=== PATIENT | male | born 1950 | race Caucasian/White ===

== ENCOUNTER → 2018-08-16 06:53 | Outpatient (CLI) | payer MEDICARE, BC, SELFPAY ==
[2018-08-16 07:26] LABS: Add Manual Diff / Slide Review NO; Basophils Percent Auto 0.7 % (0-2); Eosinophils Percent Auto 2.4 % (2-4); Hematocrit 42.5 % (41-53); Hemoglobin 14.6 g/dL (13.5-17.5); Lymphocytes Percent Auto 18.8 % (25-40); Mean Corpuscular HGB Conc 34.4 % (30-36); Mean Corpuscular Hemoglobin 33.6 PG (26-34); Mean Corpuscular Volume 97.8 fL (80-100); Monocytes Percent Auto 9.3 % (3-14); Neutrophils Absolute Auto 4300 /uL (3000-5900); Neutrophils Percent Auto 68.8 % (50-75); Platelet Count 257 X10^3/uL (150-400); Red Blood Cell Count 4.35 X10^6/uL (4.5-5.9); White Blood Cell Count 6.2 X10^3/uL (4.5-11.0)
[2018-08-16 07:37] LABS: Alanine Aminotransferase 46 IU/L (21-72); Albumin 4.2 g/dL (3.5-5.0); Albumin Globulin Ratio 1.5 (1.0-2.8); Alkaline Phosphatase 100 U/L (38-126); Aspartate Aminotransferase 35 IU/L (17-59); BUN Creatinine Ratio 38.9 (6-22); Bilirubin Total 0.3 mg/dL (0.2-1.3); Blood Urea Nitrogen 35 mg/dL (9-20); Calcium 9.3 mg/dL (8.4-10.2); Carbon Dioxide 26 mmol/L (22-32); Chloride 109 mmol/L (98-107); Cholesterol 168 mg/dL (140-199); Estimated Glomerular Filt Rate > 60.0 mL/min (>60); Globulin 2.8 g/dL (1.7-4.1); Glucose 88 mg/dL (80-110); HDL Cholesterol 47 mg/dL (40-60); HEMOLYSIS < 15 (0-50); LDL Cholesterol Calculated 98 mg/dL (<100); Sodium 145 mmol/L (137-145); Triglycerides 117 mg/dL (35-150)
[2018-08-16 18:52] LABS: Hep C Virus Ab w/Reflex Quant NEGATIVE s/c (NEGATIVE)
== END ==
PROVIDERS: Visit Provider Internal Medicine
DX: I10 Essential (primary) hypertension (principal); E78.00 Pure hypercholesterolemia, unspecified
CPT/HCPCS: 36415; 80053; 80061; 85025; 86803

== ENCOUNTER → 2018-09-25 08:30 | Outpatient (CLI) | payer MEDICARE, BC, SELFPAY ==
--- NOTE | 2018-09-25 | DI.US.S_ITS ---
PROCEDURE: US ABD AORTA ANEURYSM SCREEN INDICATIONS: SCREENING TECHNIQUE: Real time scanning was performed of the aorta and iliac arteries, with image documentation. COMPARISON: None. FINDINGS: Aorta: Proximal aortic diameter measures 2.4 cm. Mid-aorta measures 1.8 cm. Distal aortic diameter is 1.7 cm. Iliac arteries: Right common iliac artery measures 1.2 cm. Left common iliac artery measures 1.1 cm. IMPRESSION: No sign of aneurysm or dissection found. Normal caliber aorta and iliac arteries. Dictated by: Yusuf Nguyen M.D. on 09/25/2018 at 9:45 Approved by: Yusuf Nguyen M.D. on 09/25/2018 at 9:52
== END ==
PROVIDERS: PCP Internal Medicine; Visit Provider Internal Medicine
DX: Z13.6 Encounter for screening for cardiovascular disorders (principal)
CPT/HCPCS: 76706

== ENCOUNTER → 2019-03-25 15:00 | Outpatient (CLI) | payer MEDICARE, BC, SELFPAY ==
[2019-03-25 17:43] LABS: BUN Creatinine Ratio 31.3 (6-22); Blood Urea Nitrogen 25 mg/dL (9-20); Carbon Dioxide 26 mmol/L (22-32); Chloride 104 mmol/L (98-107); Estimated Glomerular Filt Rate > 60.0 mL/min (>60); Glucose 72 mg/dL (80-110); HEMOLYSIS < 15 (0-50); Potassium 4.2 mmol/L (3.4-5.1); Sodium 138 mmol/L (137-145)
== END ==
PROVIDERS: PCP Internal Medicine; Visit Provider Dermatology
DX: Z79.899 Other long term (current) drug therapy (principal)
CPT/HCPCS: 36415; 80048

== ENCOUNTER → 2019-03-31 08:04 | Outpatient (CLI) | payer MEDICARE, BC, SELFPAY ==
--- NOTE | 2019-03-31 | DI.CT.S_ITS ---
PROCEDURE: CT CHEST W CON INDICATIONS: HISTORY MM LUNG NODULES TECHNIQUE: After the administration of intravenous contrast, 5 mm thick sections acquired from the pulmonary apices to the posterior costophrenic angles. 7 mm thick coronal and sagittal MIP reformats were acquired. For radiation dose reduction, the following was used: automated exposure control, adjustment of mA and/or kV according to patient size. COMPARISON: Outside Facility, RG, CT THORAX WITH CONTRAST, 01/09/2019, 11:27. FINDINGS: Image quality: Excellent. Lungs and pleura: No acute consolidation however there is interval progression and an ill-defined subcentimeter partially ground glass and partially solid left lower lobe pulmonary nodules since prior study dated 01/09/19. Additional nodules seen in the right fissure, right middle lobe are unchanged. Lingular presumed scarring grossly unchanged, although nodular appearance image 50. . No pleural effusions or pneumothorax. Central and peripheral airways are patent and normal in caliber. Mediastinum: Heart size is normal. No pericardial effusion. No mediastinal or hilar adenopathy by size criteria. Thoracic aorta and central pulmonary arteries are normal in size. Esophagus is normal in caliber. No hiatal hernia. Bones and chest wall: No suspicious bony lesions. No vertebral body compression fractures. No axillary or supraclavicular adenopathy by size criteria. Thyroid gland unremarkable. Abdomen: Mild hepatic steatosis. Colonic diverticulosis is seen without evidence of acute complication. . IMPRESSION: Interval progression of ill-defined clustered micronodular appearance with surrounding groundglass attenuation. The appearance would be unusual for bronchogenic malignancy or metastatic disease (with the exception of indolent adenocarcinoma although this entity would not be expected to evolve so rapidly since 01/09/19). Infectious or inflammatory etiologies still in the differential. Recommend continued surveillance with noncontrast chest CT in 3 months. Remaining sub-5 mm bilateral pulmonary nodules appear stable or less conspicuous since the prior study. Dictated by: Donta Madsen M.D. on 04/03/2019 at 13:19 Approved by: Donta Madsen M.D. on 04/03/2019 at 13:27
== END ==
PROVIDERS: PCP Internal Medicine; Visit Provider Dermatology
DX: R91.8 Other nonspecific abnormal finding of lung field (principal); K76.0 Fatty (change of) liver, not elsewhere classified; K57.90 Diverticulosis of intestine, part unspecified, without perforation or abscess without bleeding; Z85.820 Personal history of malignant melanoma of skin
CPT/HCPCS: 71260; Q9967

== ENCOUNTER → 2019-05-02 11:29 | Outpatient (CLI) | payer MEDICARE, BC, SELFPAY ==
[2019-05-02 13:27] LABS: Prostate Specific Antigen 3.28 ng/mL (0.10-4.00)
== END ==
PROVIDERS: PCP Internal Medicine; Visit Provider Internal Medicine
DX: N40.1 Benign prostatic hyperplasia with lower urinary tract symptoms (principal)
CPT/HCPCS: 36415; 84153

== ENCOUNTER → 2019-07-09 08:05 | Outpatient (CLI) | payer MEDICARE, BC, SELFPAY ==
--- NOTE | 2019-07-09 08:32 | DI.CT.S_ITS ---
PROCEDURE: CT CHEST WO CON INDICATIONS: SOLITARY PULMONARY NODULE TECHNIQUE: Noncontrast 2.0-2.5 mm thick sections acquired from the pulmonary apices to the posterior costophrenic angles. 7 mm thick axial MIP and 5 mm coronal and sagittal reformats were then acquired. A low radiation dose technique was utilized. COMPARISON: Outside Facility, RG, CT THORAX WITH CONTRAST, 01/09/2019, 11:27. Outside Facility, RG, CT LUNG BIOPSY, 04/24/2019, 8:48. [facility], CT, CT CHEST W CON, 03/31/2019, 8:20. FINDINGS: Image quality: Diagnostic, given the low radiation dose technique. Lungs and pleura: There is a cluster of small lung nodules in the posterior basal segment of the left lower lobe. Compared to the last CT on 03/31/2019, the nodules have decreased in size. For example, the largest nodule on the prior exam measured 5 mm, now measuring 3 mm. The number of nodules are also decreased. Airspace opacity post biopsy in the area seen on 04/24/0.19 has resolved. There are no new nodules. There is lingular scars and atelectasis. Mediastinum: Heart size is normal. No pericardial effusion. No mediastinal adenopathy by size criteria. Thoracic aorta and central pulmonary arteries are normal in size. Esophagus is normal in caliber. No hiatal hernia. Bones and chest wall: No suspicious bony lesions. No vertebral body compression fractures. Degenerative disc disease noted in thoracic spine. No axillary or supraclavicular adenopathy by size criteria. Thyroid gland is normal. Abdomen: Visualized upper abdomen solid organs and bowel loops appear normal in the absence of contrast. IMPRESSION: 1. Interval decrease in size and number of left lower lobe lung nodules. No new nodules are identified. The CT findings are most compatible with resolving granulomatous infection. 2. No lymphadenopathy. Dictated by: Nazario Wright M.D. on 07/09/2019 at 9:45 Approved by: Nazario Wright M.D. on 07/09/2019 at 10:18
== END ==
PROVIDERS: PCP Internal Medicine; Visit Provider Internal Medicine
DX: R91.8 Other nonspecific abnormal finding of lung field (principal)
CPT/HCPCS: 71250

== ENCOUNTER → 2019-08-21 11:50 | Outpatient (CLI) | payer MEDICARE, BC, SELFPAY ==
[2019-08-21 12:37] LABS: Add Manual Diff / Slide Review NO; Basophils Absolute Auto 100 /uL (0-100); Basophils Percent Auto 1.3 % (0-2); Eosinophils Absolute Auto 0 /uL (0-450); Eosinophils Percent Auto 0.6 % (2-4); Hematocrit 43.3 % (41-53); Hemoglobin 15.1 g/dL (13.5-17.5); Lymphocytes Absolute Auto 900 /uL (1100-4500); Lymphocytes Percent Auto 19.5 % (25-40); Mean Corpuscular HGB Conc 34.9 % (30-36); Mean Corpuscular Hemoglobin 33.3 PG (26-34); Mean Corpuscular Volume 95.3 fL (80-100); Monocytes Absolute Auto 300 /uL (0-900); Monocytes Percent Auto 7.2 % (3-14); Neutrophils Absolute Auto 3400 /uL (1500-7000); Neutrophils Percent Auto 71.4 % (50-75); Platelet Count 211 X10^3/uL (150-400); Red Blood Cell Count 4.54 X10^6/uL (4.5-5.9); White Blood Cell Count 4.8 X10^3/uL (4.5-11.0)
[2019-08-21 12:45] LABS: Lactate Dehydrogenase 460 U/L (313-618)
== END ==
PROVIDERS: PCP Internal Medicine; Visit Provider Internal Medicine Hematology & Oncology
DX: C43.72 Malignant melanoma of left lower limb, including hip (principal)
CPT/HCPCS: 36415; 83615; 85025

== ENCOUNTER → 2019-11-07 11:27 | Outpatient (CLI) | payer MEDICARE, BC, SELFPAY ==
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
== END ==
PROVIDERS: PCP Internal Medicine; Visit Provider Internal Medicine
DX: E11.9 Type 2 diabetes mellitus without complications (principal)

== ENCOUNTER → 2019-11-14 09:55 | Outpatient (CLI) | payer MEDICARE, BC, SELFPAY ==
--- NOTE | 2019-11-14 13:09 | DIET.PN ---
Diabetes: Healthy Eating 2 Intervention: Fats effects on glucose, weight, heart disease, cholesterol Sat Vs Unsat Protein- animal and plant based options Low, med, high fat meats Sugar substitutes Sodium Health claims Grocery shopping guidelines Eating away from home Alcohol Sick day guidelines
== END ==
PROVIDERS: PCP Internal Medicine; Visit Provider Internal Medicine
DX: E11.9 Type 2 diabetes mellitus without complications (principal); Z71.3 Dietary counseling and surveillance
CPT/HCPCS: G0109

== ENCOUNTER → 2019-12-02 14:28 | Outpatient (CLI) | payer MEDICARE, BC, SELFPAY ==
--- NOTE | 2019-12-02 16:15 | DIET.PN ---
Exercise/Lifestyle change: 1. Importance of exercise 2. FITT (frequency, intensity, time, type) 3. Strength training tips and guidelines 4. Glucose monitoring/ranges before and after 5. Proper foot attire 6. Developing strategies for behavior change 7. SMART Goal Setting 8. Home exercise routine demonstration (as a class)
== END ==
PROVIDERS: PCP Internal Medicine; Visit Provider Internal Medicine
DX: E11.9 Type 2 diabetes mellitus without complications (principal); Z71.3 Dietary counseling and surveillance
CPT/HCPCS: G0109

== ENCOUNTER → 2019-12-12 09:51 | Outpatient (CLI) | payer MEDICARE, BC, SELFPAY ==
--- NOTE | 2019-12-12 12:17 | DIET.PN ---
Diabetes: Healthy Eating 1 Intervention: ? Discussed pathophysiology of diabetes and impact of nutrition/diet on blood sugar control.? Discussed fed versus non-fed state.?? ? Reviewed importance of Balance, Variety, and Moderation. ? Discussed the effect of carbohydrates/protein/fat on blood sugar control.? ? Stressed importance of consistent carbohydrate intake at each meal and provided instructions for recommended servings/portions of carbohydrates/protein per meal. Provided educational material. ? Reviewed carbohydrate counting and measuring carbohydrate content via serving sizes and reading nutrition labels.? Provided handouts.?? ? Discussed the difference between simple versus complex carbohydrates and the effect of fiber on blood sugar control.? Discussed various methods to increase fiber content in diet. ? Discussed the plate method for creating more carbohydrate conscious balanced meals. ? Stressed importance of meal timing and not going >4-5 hours between meals. Encouraged adding protein to evening snack to support glucose control overnight. ? Discussed importance of making dietary habits part of lifestyle change.
== END ==
PROVIDERS: PCP Internal Medicine; Visit Provider Internal Medicine
DX: E11.9 Type 2 diabetes mellitus without complications (principal); Z71.3 Dietary counseling and surveillance
CPT/HCPCS: G0109

== ENCOUNTER → 2019-12-17 09:56 | Outpatient (CLI) | payer MEDICARE, BC, SELFPAY ==
[2019-12-17 11:50] VITALS: BMI 32.6
--- NOTE | 2019-12-17 12:06 | DIET.PN ---
INDIVIDUAL NUTRITION ASSESSMENT? ? ASSESS:? Mr. Moses is a 69 yom?seen for type 2 diabetes and obesity. He reports BG has been in good control since our initial visit. He does not believe he has glucose issues, but continues to monitor and keep a daily food record. His primary concern is weight loss. He has been cutting down on sugary beverages, but continues to consume high sugary snacks. He admits he has not been eating vegetables as previously recommended and often eats more heavily in the evening. He purchased resistant bands and has been doing some home exercises. ? LABS: A1c: 5.2 FB-101 2 hr PP:??85-125 (>150 x 1) ? Weight: 246 lb ? NUTRITION Dx? 1. Altered nutrition related labs r/t type 2 DM, inconsistent carbohydrate intake as evidenced by pt report, dietary recall.?? ? INTERVENTION? 1. Reviewed blood sugar log and implications/reasons for elevated/decreased blood sugar.? Pt with good understanding.? 2. Reviewed carbohydrate counting and importance of consistent carbohydrate intake.? 3. Reviewed meal intake and importance of balanced meals (tatyana to prevent overeating).??? 4. Provided information on fat/protein intake and ways to limit saturated fat. 5. Reviewed food log. Created a list of foods to eliminate with alternate substitutions. 6. Discussed importance of fruits and vegetables and not to rely on daily vitamin for nutrient needs. 7. Recommended increasing exercise to 5 d/wk for increased weight loss results. ? MONITOR/EVALUATE: Pt receptive to information provided.? Scheduled follow-up after new labs in January.
== END ==
PROVIDERS: PCP Internal Medicine; Visit Provider Internal Medicine
DX: E11.9 Type 2 diabetes mellitus without complications (principal); E66.9 Obesity, unspecified
CPT/HCPCS: G0109

== ENCOUNTER → 2019-12-26 10:05 | Outpatient (CLI) | payer MEDICARE, BC, SELFPAY ==
--- NOTE | 2019-12-26 12:22 | DIET.PN ---
Diabetes Physiology: Intervention 1. Diabetes physiology 2. Detecting and treatment of acute and chronic complications 3. Diagnosis of and difference in types of diabetes 4. Self-monitoring and pattern management a. Demonstrate glucometer and control testing b. Explain BG results and action to take when out of range. 5. Foot , eye, dental care 6. Medications a. Oral medication classification b. Injectable c. Insulin i. Injection protocol i. Other delivery methods
== END ==
PROVIDERS: PCP Internal Medicine; Visit Provider Internal Medicine
DX: E11.9 Type 2 diabetes mellitus without complications (principal); Z71.3 Dietary counseling and surveillance
CPT/HCPCS: G0109

== ENCOUNTER → 2020-01-05 08:39 | Outpatient (CLI) | payer MEDICARE, BC, SELFPAY ==
[2020-01-05 09:44] LABS: BUN Creatinine Ratio 23.8 (6-22); Blood Urea Nitrogen 19 mg/dL (9-20); Estimated Glomerular Filt Rate > 60.0 mL/min (>60)
== END ==
PROVIDERS: PCP Internal Medicine; Referring Provider Internal Medicine Hematology & Oncology; Visit Provider Internal Medicine Hematology & Oncology
DX: C43.59 Malignant melanoma of other part of trunk (principal); R91.1 Solitary pulmonary nodule
CPT/HCPCS: 36415; 82565; 84520

== ENCOUNTER → 2020-04-15 14:03 | Outpatient (CLI) | payer MEDICARE, BC, SELFPAY ==
[2020-04-15 15:19] LABS: Add Manual Diff / Slide Review NO; Basophils Absolute Auto 0 /uL (0-100); Basophils Percent Auto 0.7 % (0-2); Eosinophils Absolute Auto 100 /uL (0-450); Eosinophils Percent Auto 1.2 % (2-4); Hematocrit 41.4 % (41-53); Hemoglobin 14.9 g/dL (13.5-17.5); Lymphocytes Absolute Auto 1100 /uL (1100-4500); Lymphocytes Percent Auto 21.6 % (25-40); Mean Corpuscular HGB Conc 35.9 % (30-36); Mean Corpuscular Hemoglobin 33.8 PG (26-34); Mean Corpuscular Volume 94.2 fL (80-100); Monocytes Absolute Auto 400 /uL (0-900); Monocytes Percent Auto 7.5 % (3-14); Neutrophils Absolute Auto 3600 /uL (1500-7000); Platelet Count 249 X10^3/uL (150-400); Red Cell Distribution Width 12.6 % (11.6-14.8); White Blood Cell Count 5.2 X10^3/uL (4.5-11.0)
[2020-04-15 15:37] LABS: Hemoglobin A1C% w Est Avg Glu 5.1 % (4.0-6.0)
[2020-04-15 15:38] LABS: Alanine Aminotransferase 27 IU/L (<50); Albumin 4.1 g/dL (3.5-5.0); Albumin Globulin Ratio 1.3 (1.0-2.8); Alkaline Phosphatase 70 U/L (38-126); Aspartate Aminotransferase 31 IU/L (17-59); BUN Creatinine Ratio 29.6 (6-22); Bilirubin Total 0.4 mg/dL (0.2-1.3); Blood Urea Nitrogen 21 mg/dL (9-20); Calcium 9.3 mg/dL (8.4-10.2); Carbon Dioxide 21 mmol/L (22-32); Chloride 107 mmol/L (98-107); Cholesterol 145 mg/dL (140-199); Estimated Glomerular Filt Rate > 60.0 mL/min (>60); Globulin 3.1 g/dL (1.7-4.1); Glucose 114 mg/dL (80-110); HDL Cholesterol 34 mg/dL (40-60); HEMOLYSIS < 15 (0-50); LDL Cholesterol Calculated 79 mg/dL (<100); Potassium 4.1 mmol/L (3.4-5.1); Sodium 138 mmol/L (137-145); Total Protein 7.2 g/dL (6.3-8.2); Triglycerides 158 mg/dL (35-150)
[2020-04-15 16:06] LABS: Prostate Specific Antigen 1.75 ng/mL (0.10-4.00)
== END ==
PROVIDERS: PCP Internal Medicine; Referring Provider Internal Medicine; Visit Provider Internal Medicine
DX: I10 Essential (primary) hypertension (principal); E78.00 Pure hypercholesterolemia, unspecified; E11.9 Type 2 diabetes mellitus without complications; N40.1 Benign prostatic hyperplasia with lower urinary tract symptoms
CPT/HCPCS: 36415; 80053; 80061; 83036; 84153; 85025

== ENCOUNTER → 2020-04-27 11:49 | Outpatient (CLI) | payer MEDICARE, BC, SELFPAY ==
--- NOTE | 2020-04-27 11:50 | DI.MRI.S_ITS ---
PROCEDURE: MR KNEE RT WO CON INDICATIONS: Unilateral primary osteoarthritis, right knee TECHNIQUE: Noncontrast sagittal PD fast spin echo and T2 fast spin echo with fat saturation, sagittal 3-D FLASH with fat saturation; coronal T1 spin echo and PD fast spin echo with fat saturation, and axial PD fast spin echo with fat saturation through the knee. COMPARISON: None. FINDINGS: Image quality: Excellent. Menisci: There is lateral meniscal extrusion and large tear and truncation of the lateral meniscus involving the body extending both anterior and posterior horns. Degenerative tear is also noted in the anterior horn of the lateral meniscus. The medial meniscus demonstrates normal morphology and internal signal. The meniscal root ligaments appear intact. Cruciate ligaments: The anterior cruciate ligament is thickened and demonstrates a striated appearance, consistent with mucoid degeneration. The posterior cruciate ligament appears intact. Medial structures: The medial collateral ligament appears intact. The posterior oblique ligament, semimembranosus tendon insertions, oblique popliteal ligament, and meniscocapsular junction appear intact. Visualized portions of the pes anserinus tendons appear normal. No abnormal bursal fluid. Lateral structures: The lateral collateral ligament, long and short heads of the biceps femoris tendon appear intact. The popliteus tendon appears normal; the popliteofibular ligament appears intact. The posterosuperior and anteroinferior popliteomeniscal fascicles appear intact. The arcuate and fabellofibular ligaments appear intact, on either side of the lateral inferior geniculate artery. Iliotibial band appears normal. Anterior structures: The quadriceps and patellar tendons appear intact. Patellar alignment is normal. No femoral trochlear dysplasia or ventral trochlear prominence. No edema in the infrapatellar fat pad. Bones and cartilage: No bone marrow contusions or fractures. There is severe cartilage loss of the lateral femorotibial compartment with denudated cartilage surface. Vrfk-hz-jtycpazm loss of cartilage in the medial femorotibial compartment and mild loss of cartilage in the patellofemoral compartment. Joint space: There is ujqodtbo-yt-ozlog knee joint effusion. Tiny Plummer's cyst. There is a 1.0 x 2.6 cm oval-shaped cyst adjacent to the fibular head, consistent with a synovial cyst. Normal appearing synovial plicae are incidentally noted. IMPRESSION: 1. Lateral meniscal extrusion and large meniscal tear involving the body extending to the anterior and posterior horns. 2. 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 3. Mucoid degeneration of the anterior cruciate ligament. 4. Iiwwtpwz-ef-ldpid knee joint effusion. 5. A synovial cyst adjacent to the fibular head. Dictated by: Nazario Wright M.D. on 04/27/2020 at 14:37 Approved by: Nazario Wright M.D. on 04/28/2020 at 8:49
== END ==
PROVIDERS: PCP Internal Medicine; Referring Provider Student in an Organized Health Care Education/Training Program; Visit Provider Student in an Organized Health Care Education/Training Program
DX: S83.281A Other tear of lateral meniscus, current injury, right knee, initial encounter (principal); M17.11 Unilateral primary osteoarthritis, right knee; M25.461 Effusion, right knee; M71.21 Synovial cyst of popliteal space [Baker], right knee
CPT/HCPCS: 73721

== ENCOUNTER → 2020-05-05 11:00 | Outpatient (CLI) | payer MEDICARE, BC, SELFPAY ==
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
== END ==
PROVIDERS: PCP Internal Medicine; Referring Provider Internal Medicine; Visit Provider Internal Medicine
DX: E11.9 Type 2 diabetes mellitus without complications (principal); E66.9 Obesity, unspecified; Z68.31 Body mass index [BMI] 31.0-31.9, adult; Z71.3 Dietary counseling and surveillance
CPT/HCPCS: G0109

== ENCOUNTER → 2020-09-14 11:36 | Outpatient (CLI) | payer MEDICARE, BC, SELFPAY ==
[2020-09-14 12:15] LABS: Add Manual Diff / Slide Review NO; Basophils Absolute Auto 0 /uL (0-100); Basophils Percent Auto 0.6 % (0-2); Eosinophils Absolute Auto 100 /uL (0-450); Eosinophils Percent Auto 1.3 % (2-4); Hematocrit 41.7 % (41-53); Hemoglobin 14.6 g/dL (13.5-17.5); Lymphocytes Absolute Auto 1000 /uL (1100-4500); Lymphocytes Percent Auto 16.7 % (25-40); Mean Corpuscular HGB Conc 35.1 % (30-36); Mean Corpuscular Hemoglobin 33.7 PG (26-34); Mean Corpuscular Volume 95.8 fL (80-100); Monocytes Absolute Auto 500 /uL (0-900); Monocytes Percent Auto 9.1 % (3-14); Neutrophils Absolute Auto 4100 /uL (1500-7000); Neutrophils Percent Auto 72.3 % (50-75); Platelet Count 218 X10^3/uL (150-400); Red Blood Cell Count 4.35 X10^6/uL (4.5-5.9); Red Cell Distribution Width 12.4 % (11.6-14.8); White Blood Cell Count 5.7 X10^3/uL (4.5-11.0)
[2020-09-14 13:06] LABS: Alanine Aminotransferase 27 IU/L (<50); Albumin 4.2 g/dL (3.5-5.0); Albumin Globulin Ratio 1.4 (1.0-2.8); Alkaline Phosphatase 65 U/L (38-126); Aspartate Aminotransferase 30 IU/L (17-59); BUN Creatinine Ratio 26.9 (6-22); Bilirubin Total 0.7 mg/dL (0.2-1.3); Blood Urea Nitrogen 21 mg/dL (9-20); Carbon Dioxide 32 mmol/L (22-32); Chloride 103 mmol/L (98-107); Estimated Glomerular Filt Rate > 60.0 mL/min (>60); Globulin 2.9 g/dL (1.7-4.1); Glucose 81 mg/dL (80-110); HEMOLYSIS < 15 (0-50); Potassium 4.4 mmol/L (3.4-5.1); Sodium 138 mmol/L (137-145); Total Protein 7.1 g/dL (6.3-8.2)
[2020-09-14 13:45] LABS: Hemoglobin A1C% w Est Avg Glu 5.2 % (4.0-6.0)
== END ==
PROVIDERS: Internal Medicine; Family Provider Internal Medicine; PCP Internal Medicine; Referring Provider Internal Medicine; Visit Provider Internal Medicine
DX: I10 Essential (primary) hypertension (principal); E78.00 Pure hypercholesterolemia, unspecified; E11.9 Type 2 diabetes mellitus without complications; C43.9 Malignant melanoma of skin, unspecified
CPT/HCPCS: 36415; 80053; 83036; 85025

== ENCOUNTER → 2020-11-10 13:15 | Outpatient (CLI) | payer MEDICARE, BC, SELFPAY ==
[2020-11-10 14:01] LABS: Aspartate Aminotransferase 41 IU/L (17-59)
== END ==
PROVIDERS: Family Provider Internal Medicine; PCP Internal Medicine; Referring Provider Internal Medicine; Visit Provider Internal Medicine
DX: B35.1 Tinea unguium (principal)
CPT/HCPCS: 36415; 84450

== ENCOUNTER → 2020-12-14 09:33 | Outpatient (CLI) | payer MEDICARE, BC, SELFPAY ==
--- NOTE | 2020-12-14 09:35 | DI.CT.S_ITS ---
PROCEDURE: CT CHEST W CON INDICATIONS: Follow-up melanoma with history of 6 mm LLL lung nodule TECHNIQUE: After the administration of intravenous contrast, 5 mm thick sections acquired from the pulmonary apices to the posterior costophrenic angles. 1 mm axial lung, 5 mm thick coronal and sagittal reformats and 7 mm axial MIP were acquired. For radiation dose reduction, the following was used: automated exposure control, adjustment of mA and/or kV according to patient size. COMPARISON: [facility], CT, CT CHEST W CON, 03/31/2019, 8:20. [facility], CT, CT CHEST WO CON, 07/09/2019, 8:13. FINDINGS: Image quality: Excellent. Lungs and pleura: A focal reticulonodular opacity is present in the posterolateral left lower lobe to a greater degree compared to the prior study. Finding has become denser and now contains a central nodule measuring approximately 12 mm. 3 mm right middle lobe lung nodules (2/218 and 225), are stable. Calcified lateral left upper lobe lung nodules are redemonstrated (2/108). Persistent atelectatic change in the medial lingula. Platelike atelectasis/scar laterally at the left lung base. No new air space opacities. No pleural effusions or pneumothorax. Central and peripheral airways are patent and normal in caliber. Mediastinum: Heart size is normal. No pericardial effusion. No mediastinal or hilar adenopathy by size criteria. Thoracic aorta and central pulmonary arteries are normal in size. Esophagus is normal in caliber. No hiatal hernia. Bones and chest wall: No suspicious bony lesions. No vertebral body compression fractures. No axillary or supraclavicular adenopathy by size criteria. Thyroid gland is normal . Abdomen: Visualized upper abdominal solid organs appear normal. Upper abdominal bowel loops are normal in caliber. IMPRESSION: 1. Slight increase in the reticulonodular pattern seen focally in the left lateral lower lobe. This is likely granulomatous change or chronic postinflammatory change. While this is unlikely to represent metastatic disease, the solid component is large enough to be evaluated by PET-CT if there is further clinical concern. 2. No new lung nodules. Other scattered probable granulomas in the lungs appear stable. Dictated by: Carli Gutierrez M.D. on 12/14/2020 at 13:21 Approved by: Carli Gutierrez M.D. on 12/14/2020 at 13:32
== END ==
PROVIDERS: Family Provider Internal Medicine; PCP Internal Medicine; Referring Provider Internal Medicine; Visit Provider Internal Medicine
DX: Z08 Encounter for follow-up examination after completed treatment for malignant neoplasm (principal); Z85.820 Personal history of malignant melanoma of skin; Z85.828 Personal history of other malignant neoplasm of skin; R91.8 Other nonspecific abnormal finding of lung field
CPT/HCPCS: 71260; Q9967

== ENCOUNTER → 2020-12-21 13:53 | Outpatient (CLI) | payer MEDICARE, BC, SELFPAY ==
[2020-12-21] MEDS: COVID-19 VACC #1, MRNA(MOD) 100 MCG/0.5 ML VIAL IM (13:58)
== END ==
PROVIDERS: Family Provider Internal Medicine; PCP Internal Medicine; Visit Provider Internal Medicine
DX: Z23 Encounter for immunization (principal)
CPT/HCPCS: 0011A; 91301

== ENCOUNTER → 2021-01-18 14:12 | Outpatient (CLI) | payer MEDICARE, BC, SELFPAY ==
[2021-01-18] MEDS: COVID-19 VACC #2, MRNA(MOD) 100 MCG/0.5 ML VIAL IM (14:28)
== END ==
PROVIDERS: Family Provider Internal Medicine; PCP Internal Medicine; Visit Provider Internal Medicine
DX: Z23 Encounter for immunization (principal)
CPT/HCPCS: 0012A; 91301

== ENCOUNTER → 2021-03-17 08:02 | Outpatient (CLI) | payer MEDICARE, BC, SELFPAY ==
[2021-03-17 08:43] LABS: Add Manual Diff / Slide Review NO; Basophils Absolute Auto 0 /uL (0-100); Basophils Percent Auto 0.8 % (0-2); Eosinophils Absolute Auto 100 /uL (0-450); Eosinophils Percent Auto 2.2 % (2-4); Hematocrit 42.1 % (41-53); Hemoglobin 14.8 g/dL (13.5-17.5); Lymphocytes Absolute Auto 1200 /uL (1100-4500); Lymphocytes Percent Auto 26.3 % (25-40); Mean Corpuscular HGB Conc 35.1 % (30-36); Mean Corpuscular Hemoglobin 33.5 PG (26-34); Mean Corpuscular Volume 95.4 fL (80-100); Monocytes Absolute Auto 400 /uL (0-900); Monocytes Percent Auto 9.8 % (3-14); Neutrophils Absolute Auto 2700 /uL (1500-7000); Neutrophils Percent Auto 60.9 % (50-75); Platelet Count 206 X10^3/uL (150-400); Red Blood Cell Count 4.41 X10^6/uL (4.5-5.9); Red Cell Distribution Width 12.8 % (11.6-14.8); White Blood Cell Count 4.5 X10^3/uL (4.5-11.0)
[2021-03-17 08:48] LABS: Hemoglobin A1C% w Est Avg Glu 5.1 % (4.0-6.0)
[2021-03-17 09:16] LABS: Alanine Aminotransferase 30 IU/L (<50); Albumin 3.9 g/dL (3.5-5.0); Albumin Globulin Ratio 1.4 (1.0-2.8); Alkaline Phosphatase 63 U/L (38-126); Aspartate Aminotransferase 31 IU/L (17-59); BUN Creatinine Ratio 27.8 (6-22); Bilirubin Total 0.4 mg/dL (0.2-1.3); Blood Urea Nitrogen 20 mg/dL (9-20); Calcium 9.3 mg/dL (8.4-10.2); Carbon Dioxide 27 mmol/L (22-32); Chloride 105 mmol/L (98-107); Cholesterol 178 mg/dL (140-199); Estimated Glomerular Filt Rate > 60.0 mL/min (>60); Globulin 2.7 g/dL (1.7-4.1); Glucose 88 mg/dL (80-110); HDL Cholesterol 45 mg/dL (40-60); HEMOLYSIS < 15 (0-50); LDL Cholesterol Calculated 115 mg/dL (<100); Potassium 4.5 mmol/L (3.4-5.1); Sodium 139 mmol/L (137-145); Total Protein 6.6 g/dL (6.3-8.2); Triglycerides 91 mg/dL (35-150)
== END ==
PROVIDERS: Family Provider Internal Medicine; PCP Internal Medicine; Referring Provider Internal Medicine; Visit Provider Internal Medicine
DX: C43.72 Malignant melanoma of left lower limb, including hip (principal); R91.1 Solitary pulmonary nodule
CPT/HCPCS: 36415; 80053; 80061; 83036; 85025

== ENCOUNTER → 2021-03-29 15:13 | Outpatient (CLI) | payer MEDICARE, BC, SELFPAY ==
[2021-03-29 17:14] LABS: HEMOLYSIS < 15 (0-50); Iron 73 ug/dL (49-181)
[2021-03-29 17:28] LABS: Percent Iron Saturation 20 % (20-50); Total Iron Binding Capacity 358 ug/dL (261-462); Transferrin 269 mg/dL (206-381)
[2021-03-29 17:51] LABS: Ferritin 113 ng/mL (18-464)
== END ==
PROVIDERS: Family Provider Internal Medicine; PCP Internal Medicine; Referring Provider Internal Medicine; Visit Provider Internal Medicine
DX: D64.9 Anemia, unspecified (principal); D50.9 Iron deficiency anemia, unspecified
CPT/HCPCS: 36415; 82728; 83540; 83550

== ENCOUNTER → 2021-04-01 08:29 | Outpatient (CLI) | payer MEDICARE, BC, SELFPAY ==
[2021-04-01 10:05] LABS: Alanine Aminotransferase 28 IU/L (<50); Albumin Globulin Ratio 1.3 (1.0-2.8); Alkaline Phosphatase 66 U/L (38-126); Aspartate Aminotransferase 30 IU/L (17-59); Bilirubin Total 0.4 mg/dL (0.2-1.3); Bilirubin Unconjugated 0.3 mg/dL (0.0-1.1); Globulin 3.1 g/dL (1.7-4.1); HEMOLYSIS 21 (0-50); Total Protein 7.1 g/dL (6.3-8.2)
== END ==
PROVIDERS: Family Provider Internal Medicine; PCP Internal Medicine; Referring Provider Radiology Therapeutic Radiology; Visit Provider Radiology Therapeutic Radiology
DX: B35.1 Tinea unguium (principal)
CPT/HCPCS: 36415; 80076

== ENCOUNTER → 2021-05-03 14:24 | Outpatient (CLI) | payer MEDICARE, BC, SELFPAY ==
[2021-05-03 16:49] LABS: Alanine Aminotransferase 29 IU/L (<50); Albumin 3.9 g/dL (3.5-5.0); Albumin Globulin Ratio 1.4 (1.0-2.8); Alkaline Phosphatase 65 U/L (38-126); Aspartate Aminotransferase 36 IU/L (17-59); Bilirubin Total 0.7 mg/dL (0.2-1.3); Bilirubin Unconjugated 0.5 mg/dL (0.0-1.1); Globulin 2.7 g/dL (1.7-4.1); HEMOLYSIS < 15 (0-50); Total Protein 6.6 g/dL (6.3-8.2)
== END ==
PROVIDERS: Family Provider Internal Medicine; PCP Internal Medicine; Referring Provider Physician Assistant; Visit Provider Physician Assistant
DX: B35.1 Tinea unguium (principal)
CPT/HCPCS: 36415; 80076

== ENCOUNTER → 2021-06-16 07:21 | Outpatient (CLI) | payer MEDICARE, BC, SELFPAY ==
[2021-06-16 07:47] LABS: BUN Creatinine Ratio 25.6 (6-22); Blood Urea Nitrogen 20 mg/dL (9-20); Estimated Glomerular Filt Rate > 60.0 mL/min (>60)
--- NOTE | 2021-06-16 08:10 | DI.CT.S_ITS ---
PROCEDURE: CT CHEST W CON INDICATIONS: Follow-up lung nodule, history melanoma TECHNIQUE: After the administration of intravenous contrast, 5 mm thick sections acquired from the pulmonary apices to the posterior costophrenic angles. 1 mm axial lung, 5 mm thick coronal and sagittal reformats and 7 mm axial MIP were acquired. For radiation dose reduction, the following was used: automated exposure control, adjustment of mA and/or kV according to patient size. COMPARISON: [facility], CT, CT CHEST WO CON, 07/09/2019, 8:13. Outside Facility, RG, CT LUNG BIOPSY, 04/24/2019, 8:48. Outside Facility, RG, CT THORAX WITH CONTRAST, 01/09/2019, 11:27. [facility], CT, CT CHEST W CON, 12/14/2020, 9:59. FINDINGS: Image quality: Excellent. Lungs and pleura: Left lower lobe peripheral reticular nodular opacity, (3/250), decreased compared to 12/14/2020. Decreased distal mucus airway plugging in the left lower lobe. No new or enlarging pulmonary nodules. Left major fissure nodule 0.4 cm, (3/152), unchanged since 2019 and has the appearance of an intrapulmonary lymph node. Right middle lobe pulmonary nodule measuring 0.3 cm, (3/218), unchanged since 2019. Small calcified granuloma in the left upper lobe. Central airways are clear. No pleural effusions or pneumothorax. Mediastinum: Heart size is normal. No pericardial effusion. No mediastinal or hilar adenopathy by size criteria. Thoracic aorta and central pulmonary arteries are normal in size. Esophagus is normal in caliber. Small hiatal hernia. Bones and chest wall: No suspicious bony lesions. No vertebral body compression fractures. No axillary or supraclavicular adenopathy by size criteria. Tiny hypodense left thyroid nodule. Abdomen: No adrenal nodule. Visualized upper abdominal solid organs appear normal. Upper abdominal bowel loops are normal in caliber. IMPRESSION: 1. Left lower lobe reticular nodular opacity is decreased. Distal mucus airway plugging in the left lower lobe is decreased. Favor infectious/inflammatory etiology over primary neoplasm or metastatic disease. -Follow-up CT of the chest in 1 year could be performed to demonstrate long-term stability or continued decrease. 2. No new or enlarging pulmonary nodules. 3. No adenopathy. Dictated by: Saroj Garner M.D. on 06/16/2021 at 10:31 Approved by: Saroj Garner M.D. on 06/16/2021 at 10:57
== END ==
PROVIDERS: Family Provider Internal Medicine; PCP Internal Medicine; Referring Provider Internal Medicine; Visit Provider Internal Medicine
DX: C43.72 Malignant melanoma of left lower limb, including hip (principal); R91.1 Solitary pulmonary nodule; K44.9 Diaphragmatic hernia without obstruction or gangrene
CPT/HCPCS: 71260; 82565; 84520

== ENCOUNTER → 2021-06-20 13:46 | Outpatient (CLI) | payer MEDICARE, BC, SELFPAY ==
[2021-06-20 14:29] LABS: Alanine Aminotransferase 30 IU/L (<50); Albumin 4.5 g/dL (3.5-5.0); Albumin Globulin Ratio 1.4 (1.0-2.8); Alkaline Phosphatase 66 U/L (38-126); Aspartate Aminotransferase 35 IU/L (17-59); Bilirubin Total 0.6 mg/dL (0.2-1.3); Bilirubin Unconjugated 0.5 mg/dL (0.0-1.1); Globulin 3.3 g/dL (1.7-4.1); HEMOLYSIS < 15 (0-50); Total Protein 7.8 g/dL (6.3-8.2)
== END ==
PROVIDERS: Specialist; Family Provider Internal Medicine; PCP Internal Medicine; Referring Provider Physician Assistant; Visit Provider Physician Assistant
DX: B35.1 Tinea unguium (principal); E03.9 Hypothyroidism, unspecified; R39.9 Unspecified symptoms and signs involving the genitourinary system; N40.1 Benign prostatic hyperplasia with lower urinary tract symptoms
CPT/HCPCS: 36415; 80076; 84153

== ENCOUNTER → 2022-04-20 15:54 | Outpatient (CLI) | payer MEDICARE, BC, SELFPAY ==
[2022-04-20 17:56] LABS: Hematocrit 40.2 % (41-53); Hemoglobin 14.4 g/dL (13.5-17.5); Mean Corpuscular HGB Conc 35.9 % (30-36); Mean Corpuscular Hemoglobin 33.4 PG (26-34); Mean Corpuscular Volume 93.2 fL (80-100); Platelet Count 282 X10^3/uL (150-400); Red Blood Cell Count 4.31 X10^6/uL (4.5-5.9); Red Cell Distribution Width 12.6 % (11.6-14.8); White Blood Cell Count 6.5 X10^3/uL (4.5-11.0)
[2022-04-20 18:40] LABS: Alanine Aminotransferase 31 IU/L (<50); Albumin 4.1 g/dL (3.5-5.0); Albumin Globulin Ratio 1.4 (1.0-2.8); Alkaline Phosphatase 69 U/L (38-126); Aspartate Aminotransferase 33 IU/L (17-59); BUN Creatinine Ratio 24.7 (6-22); Bilirubin Total 0.4 mg/dL (0.2-1.3); Blood Urea Nitrogen 21 mg/dL (9-20); Carbon Dioxide 25 mmol/L (22-32); Chloride 103 mmol/L (98-107); Cholesterol 161 mg/dL (140-199); Estimated Glomerular Filt Rate > 60 mL/min (>60); Globulin 2.9 g/dL (1.7-4.1); Glucose 80 mg/dL (80-110); HDL Cholesterol 46 mg/dL (40-60); HEMOLYSIS < 15 (0-50); LDL Cholesterol Calculated 91 mg/dL (<100); Potassium 4.2 mmol/L (3.4-5.1); Sodium 137 mmol/L (137-145); Triglycerides 122 mg/dL (35-150)
[2022-04-20 19:09] LABS: TSH w/ Reflex to FT4 1.36 uIU/mL (0.47-4.68)
== END ==
PROVIDERS: Family Provider Internal Medicine; PCP Internal Medicine; Referring Provider Internal Medicine; Visit Provider Internal Medicine
DX: E78.2 Mixed hyperlipidemia (principal); N40.1 Benign prostatic hyperplasia with lower urinary tract symptoms; N13.8 Other obstructive and reflux uropathy
CPT/HCPCS: 36415; 80053; 80061; 84153; 84443; 85027

== ENCOUNTER → 2022-08-03 07:46 | Outpatient (CLI) | payer MEDICARE, BC, SELFPAY ==
[2022-08-03 08:18] LABS: Hemoglobin A1C% w Est Avg Glu 5.3 % (4.0-6.0)
[2022-08-03 08:35] LABS: Glucose 82 mg/dL (80-110)
== END ==
PROVIDERS: Family Provider Internal Medicine; PCP Internal Medicine; Referring Provider Internal Medicine; Visit Provider Internal Medicine
DX: R73.01 Impaired fasting glucose (principal)
CPT/HCPCS: 36415; 82947; 83036

== ENCOUNTER → 2022-09-12 09:21 | Outpatient (CLI) | payer MEDICARE, BC, SELFPAY ==
[2022-09-12 11:49] LABS: COVID19 -Nasal RAPID Negative (Negative)
== END ==
PROVIDERS: Family Provider Internal Medicine; PCP Internal Medicine; Visit Provider Surgery
DX: Z20.822 Contact with and (suspected) exposure to COVID-19 (principal); Z01.812 Encounter for preprocedural laboratory examination
CPT/HCPCS: 87635; C9803

== ENCOUNTER 2022-09-13 07:33 | Day surgery (SDC) | payer MEDICARE, BC, SELFPAY ==
[2022-09-13 08:01] VITALS: BMI 31.8
[2022-09-13 08:12] VITALS: BP 140/72; PULSE 65; RESP 12; TEMP 37; O2SAT 97
[2022-09-13] MEDS: SODIUM CHLORIDE 0.9% 1,000 ML 84 ML IV (08:15)
--- NOTE | 2022-09-13 08:40 | PM.HP.1 ---
History of Present Illness History of Present Illness Date Patient Seen: 09/13/22 Chief complaint: COLONOSCOPY Patient History Medical History (Updated 07/28/22 @ 11:54 by Will Lee MD) Advanced directives, counseling/discussion BPH w urinary obs/LUTS Family history of colon cancer in mother Generalized anxiety disorder Hearing loss History of melanoma Hypertension Impaired fasting glucose Medicare annual wellness visit, initial Melanoma Mixed hyperlipidemia Pulmonary nodule Surgical History History of appendectomy Family & Social History Tobacco & Substance use: Smoking Status Former smoker alcohol intake former Substance Use Type does not use Meds Home Medications and Allergies Home Medications Medication Instructions Recorded Confirmed Type multivitamin (Multiple Vitamins 1 tab PO QDAY ##0 01/31/18 09/13/22 History tablet) omega [id number]-zah-iza-fish oil 1,000 mg 1,000 mg PO DAILY ##0 01/31/18 09/13/22 History (120 mg-180 mg) capsule (Fish Oil) lorazepam 0.5 mg tablet 0.5 mg PO DAILY PRN Anxiety 05/27/20 09/13/22 History simvastatin 20 mg tablet 20 mg PO DAILY #90 tabs 04/20/22 09/13/22 Rx finasteride 5 mg tablet 5 mg PO DAILY #90 tabs 08/04/22 09/13/22 Rx Allergies Allergy/AdvReac Type Severity Reaction Status Date / Time bee venom protein (honey bee) Allergy Severe anaphalatic Verified 09/13/22 07:59 [BEE VENOM PROTEIN (HONEY BEE)] Exam Vital Signs (past 8 hours): - 09/13/22 08:12 Temperature 98.6 F Pulse Rate 65 Respiratory Rate 12 Blood Pressure 140/72 Pulse Oximetry 97 Oxygen Delivery Method Room Air Oxygen Delivery Method Room Air Narrative Exam Narrative: Oropharynx free of lesions Chest clear to auscultation percussion Cardiac exam reveals no S3 or murmur Assessment & Plan Assessment & Plan narrative: Personal history of colon polyps need for follow-up colonoscopy. Risks, benefits, alternatives have been explained. Colonoscopy be performed today Time Spent With Patient Critical Care time: I spent a total of [] minutes of critical care time on this patient's care today; this time is exclusive of procedural time.
--- NOTE | 2022-09-13 08:43 | PM.OP.COLON ---
Operative Date/Time/Diagnoses Date of procedure: 09/13/22 Pre-op diagnosis: See indication and findings Procedure & Clinicians Study performed: Colonoscopy Indications: Personal history of colon polyps Surgeon: Kaden Douglas Procedure Notes Procedure in detail: After informed consent was obtained the patient was placed in left lateral decubitus position. The video colonoscope was introduced the rectum slowly advanced to the sigmoid colon. Preparation was poor with significant solid stool present.. On slow withdrawal mucosa was carefully examined. The scope was removed. The patient tolerated procedure well. Blood loss none Complications none Sedation Propofol Findings 1. Grossly normal colonoscopy to sigmoid colon. 2. Poor preparation. Need to reschedule with increased prep Mr. Moses need to be rescheduled at [facility] for repeat colonoscopy with a extra dose and or 2 day prep.
--- NOTE | 2022-09-13 08:51 | P.DS_ITS ---
History of Present Illness History of Present Illness Chief complaint: COLONOSCOPY Discharge Providers Provider Primary care physician: Will Lee MD Discharge provider: Kaden Douglas MD Exam Vital Signs (past 8 hours): - 09/13/22 08:12 Temperature 98.6 F Pulse Rate 65 Respiratory Rate 12 Blood Pressure 140/72 Pulse Oximetry 97 Oxygen Delivery Method Room Air Oxygen Delivery Method Room Air [facility] Medical History (Updated 07/28/22 @ 11:54 by Will Lee MD) Advanced directives, counseling/discussion BPH w urinary obs/LUTS Family history of colon cancer in mother Generalized anxiety disorder Hearing loss History of melanoma Hypertension Impaired fasting glucose Medicare annual wellness visit, initial Melanoma Mixed hyperlipidemia Pulmonary nodule Surgical History History of appendectomy Social History Smoking Status: Former smoker alcohol intake: former eating out: 1-3 times/week Type(s) of exercise: walking and bicycling Discharge Plan Discharge orders & Medications Prescriptions: No Action multivitamin [Multiple Vitamins] 1 EACH tablet 1 tab PO QDAY Qty: 0 omega 6-hpx-gfm-fish oil [Fish Oil] 1,000 MG capsule 1,000 mg PO DAILY Qty: 0 finasteride 5 mg tablet 5 mg PO DAILY Qty: 90 3RF simvastatin 20 mg tablet 20 mg PO DAILY Qty: 90 3RF lorazepam 0.5 mg tablet 0.5 mg PO DAILY PRN (Reason: Anxiety) Follow up/Referrals: Will Lee MD [Primary Care Provider] - Discharge Data Primary Care Provider: Will Lee V Attending Provider: Kaden Douglas
[2022-09-13 08:54] VITALS: BP 105/71; PULSE 59; RESP 18; TEMP 36.9; O2SAT 97
[2022-09-13 08:59] VITALS: BP 108/69; PULSE 98; RESP 18; O2SAT 97
[2022-09-13 09:04] VITALS: BP 129/79; PULSE 66; RESP 18; O2SAT 97
[2022-09-13 09:06] VITALS: BP 108/71; PULSE 66; RESP 18; TEMP 36.4; O2SAT 97
[2022-09-13 09:30] VITALS: BP 117/64; PULSE 58; RESP 16; TEMP 37.2; O2SAT 97
== END 2022-09-13 09:40 | disposition home or self-care (01) ==
PROVIDERS: Family Provider Internal Medicine; PCP Internal Medicine; Referring Provider Internal Medicine Gastroenterology; Visit Provider Internal Medicine Gastroenterology
PROC: 0DJD8ZZ Inspection of Lower Intestinal Tract, Via Natural or Artificial Opening Endoscopic (ICD-10-PCS; CPT 45378; principal; 2022-09-13 08:30)
DX: Z12.11 Encounter for screening for malignant neoplasm of colon (principal); Z80.0 Family history of malignant neoplasm of digestive organs; Z86.010 Personal history of colon polyps; Z53.09 Procedure and treatment not carried out because of other contraindication
CPT/HCPCS: G0121; J2704

== ENCOUNTER → 2022-12-19 08:31 | Outpatient (CLI) | payer MEDICARE, BC, SELFPAY ==
[2022-12-19 09:05] LABS: COVID19 -Nasal RAPID Negative (Negative)
== END ==
PROVIDERS: Family Provider Internal Medicine; PCP Internal Medicine; Visit Provider Internal Medicine
DX: Z20.822 Contact with and (suspected) exposure to COVID-19 (principal)
CPT/HCPCS: 87635; C9803

== ENCOUNTER → 2023-01-31 09:04 | Outpatient (CLI) | payer MEDICARE, BC, SELFPAY ==
[2023-01-31 10:26] LABS: Hemoglobin A1C% w Est Avg Glu 5.4 % (4.0-6.0)
[2023-01-31 10:47] LABS: Aspartate Aminotransferase 29 IU/L (17-59); BUN Creatinine Ratio 36.8 (6-22); Blood Urea Nitrogen 25 mg/dL (9-20); Calcium 8.4 mg/dL (8.4-10.2); Carbon Dioxide 28 mmol/L (22-32); Chloride 105 mmol/L (98-107); Cholesterol 158 mg/dL (140-199); Estimated Glomerular Filt Rate > 60 mL/min (>60); Glucose 75 mg/dL (80-110); HDL Cholesterol 37 mg/dL (40-60); HEMOLYSIS < 15 (0-50); LDL Cholesterol Calculated 101 mg/dL (<100); Sodium 138 mmol/L (137-145); Triglycerides 100 mg/dL (35-150)
[2023-01-31 11:08] LABS: Prostate Specific Antigen 3.42 ng/mL (0.10-4.00)
[2023-02-01 15:28] LABS: Fecal Immunochemical Test Negative (Negative)
== END ==
PROVIDERS: Family Provider Internal Medicine; PCP Internal Medicine; Referring Provider Internal Medicine; Visit Provider Internal Medicine
DX: R73.01 Impaired fasting glucose (principal); E78.2 Mixed hyperlipidemia; N40.1 Benign prostatic hyperplasia with lower urinary tract symptoms; N13.8 Other obstructive and reflux uropathy; Z85.820 Personal history of malignant melanoma of skin
CPT/HCPCS: 36415; 80048; 80061; 82274; 83036; 84153; 84450

== ENCOUNTER → 2023-06-22 11:45 | Outpatient (CLI) | payer MEDICARE, BC, SELFPAY ==
[2023-06-22 13:48] LABS: COVID-19 CEPHEID 4-PLEX PCR Negative (Negative); Influenza A - CEPHEID Flu A NEGATIVE (NEGATIVE); Influenza B - CEPHEID Flu B NEGATIVE (NEGATIVE); Respiratory Syncytial Virus Negative (Negative)
== END ==
PROVIDERS: Family Provider Internal Medicine; PCP Internal Medicine; Visit Provider Internal Medicine
DX: Z20.822 Contact with and (suspected) exposure to COVID-19 (principal)
CPT/HCPCS: 0241U

== ENCOUNTER → 2023-08-21 08:42 | Outpatient (CLI) | payer MEDICARE, BC, SELFPAY ==
[2023-08-21 09:49] LABS: Hemoglobin A1C% w Est Avg Glu 4.9 % (4.0-6.0)
[2023-08-21 10:02] LABS: Aspartate Aminotransferase 27 IU/L (17-59); BUN Creatinine Ratio 26.3 (6-22); Blood Urea Nitrogen 20 mg/dL (9-20); Calcium 9.4 mg/dL (8.4-10.2); Carbon Dioxide 26 mmol/L (22-32); Chloride 104 mmol/L (98-107); Cholesterol 180 mg/dL (140-199); Estimated Glomerular Filt Rate > 60 mL/min (>60); Glucose 95 mg/dL (80-110); HDL Cholesterol 45 mg/dL (40-60); HEMOLYSIS < 15 (0-50); LDL Cholesterol Calculated 117 mg/dL (<100); Potassium 4.4 mmol/L (3.4-5.1); Sodium 138 mmol/L (137-145); Triglycerides 91 mg/dL (35-150)
[2023-08-21 10:27] LABS: Prostate Specific Antigen 5.77 ng/mL (0.10-4.00)
== END ==
PROVIDERS: Family Provider Internal Medicine; PCP Internal Medicine; Referring Provider Internal Medicine; Visit Provider Internal Medicine
DX: R73.01 Impaired fasting glucose (principal); E78.2 Mixed hyperlipidemia; N40.1 Benign prostatic hyperplasia with lower urinary tract symptoms; N13.8 Other obstructive and reflux uropathy
CPT/HCPCS: 36415; 80048; 80061; 83036; 84153; 84450

== ENCOUNTER → 2023-09-24 11:14 | Outpatient (CLI) | payer MEDICARE, BC, SELFPAY ==
[2023-09-26 06:50] LABS: PSA Free % 29.2 % (.); PSA, Total 5.1 ng/mL (0.0-4.0)
== END ==
PROVIDERS: Family Provider Internal Medicine; PCP Internal Medicine; Referring Provider Internal Medicine; Visit Provider Internal Medicine
DX: R97.20 Elevated prostate specific antigen [PSA] (principal)
CPT/HCPCS: 36415; 84153; 84154

== ENCOUNTER → 2024-01-24 08:12 | Outpatient (CLI) | payer MEDICARE, BC, SELFPAY ==
--- NOTE | 2024-01-24 08:30 | DI.MRI.S_ITS ---
PROCEDURE: MR PELVIC PROSTATE PROTOCOL INDICATIONS: Elevated PSA TECHNIQUE: Coronal HASTE, axial T1 FSE with fat saturation, 3-plane nonbreath-hold T2 FSE. After the administration of contrast, dynamic axial, delayed axial and coronal VIBE or 2-D FLASH with fat saturation through the pelvis. Diffusion weighted imaging and ADC was performed. COMPARISON: None. FINDINGS: Image quality: Diffusion weighted and dynamic contrast enhanced images are diagnostic. Prostate: Gland size is 7.2 x 4.7 x 5.9 cm; ellipsoid gland volume is 104 mL. Lesion 1: Location: Right posterior transition zone, apex, on axial series 5, image 10 and coronal series 6, image 17. Size: 1.3 x 1.0 cm. T2W signal: Hypointense. Non circumscribed. DWI signal: Markedly hyperintense. ADC signal: Markedly hypointense. Enhancement: Yes. Extracapsular extension: No. No neurovascular involvement. PI-RADS score: 4 Lesion 2: Location: Right medial peripheral zone, mid gland, on axial series 5, image 12 and sagittal series 3, image 9. Size: 1.9 x 0.8 cm. T2W signal: Hypointense. DWI signal: Markedly hyperintense. ADC signal: Markedly hypointense. Enhancement: Yes. Extracapsular extension: Broad-based contact. PI-RADS score: 5 Genitourinary system: Bladder wall thickness is normal. Distal ureters are non distended. Bowel and peritoneum: No pathologic free pelvic fluid. Inferior colon and small bowel loops are normal in caliber. Nodes and vessels: Right external iliac chain node measuring 2.7 centimeters, with heterogeneous enhancement and abnormal contour (series 21, image 72). Prominent left external iliac chain node measuring 9 millimeter short axis (series 21, image 64). Soft tissues: No inguinal hernias. Bones: Marrow demonstrates normal overall signal, without lesions to suggest metastases. IMPRESSION: PI-RADS 4 in 5 lesions, as above. Abnormal right external iliac chain node. Differential includes bossman metastasis from prostate or less likely melanoma. Findings could be confirmed with PMSA. Prominent left external iliac chain node measuring 9 millimeter short axis. Findings are also suspicious for bossman disease. Dictated by: Prabhakar Talley M.D. on 01/24/2024 at 11:19 Approved by: Prabhakar Talely M.D. on 01/24/2024 at 11:27
== END ==
LOC: MRI 08:14
PROVIDERS: Family Provider Internal Medicine; PCP Internal Medicine; Referring Provider Urology; Visit Provider Urology
DX: N42.9 Disorder of prostate, unspecified (principal); R59.0 Localized enlarged lymph nodes; R97.20 Elevated prostate specific antigen [PSA]; Z80.42 Family history of malignant neoplasm of prostate
CPT/HCPCS: 72197; A9579

== ENCOUNTER → 2024-03-13 08:29 | Outpatient (CLI) | payer MEDICARE, BC, SELFPAY ==
--- NOTE | 2024-03-13 08:31 | DI.CT.S_ITS ---
PROCEDURE: CT ABDOMEN PELVIS W CON INDICATIONS: New diagnosis prostate cancer TECHNIQUE: After the administration of intravenous contrast, axial sections acquired from the lung bases to the pubic symphysis. Coronal and sagittal reformats were performed. For radiation dose reduction, the following was used: automated exposure control, adjustment of mA and/or kV according to patient size. COMPARISON: FINDINGS: Image quality: Diagnostic. Lower Chest: Middle lobe solid pulmonary nodule measuring 2 mm (2/3). Small cluster of centrilobular nodules in the left lower lobe (2/7). ABDOMEN: Liver: No solid mass. Gallbladder: No radiopaque gallstones or wall thickening. Biliary ducts: No biliary dilation. Pancreas: No ductal dilation. Spleen: Size is within normal limits. Adrenal Glands: No adrenal nodules. Kidneys and Ureters: No hydronephrosis. No solid mass. No complex renal cystic lesion which requires follow up. Stomach and Bowel: Normal colonic caliber, without significant wall thickening. Extensive colonic diverticulosis, without diverticulitis. Surgical clips in the right lower quadrant which may represent sequela of prior appendectomy. Peritoneum: No abnormal intraperitoneal fluid. No free air. Ventral Wall: No significant ventral hernia. Abdominal Nodes: No retroperitoneal or mesenteric adenopathy by size criteria. Vessels: Aorta and inferior vena cava are normal in size. PELVIS: Pelvic Organs: Heterogeneous prostate gland. Please see MRI prostate for detailed description of malignancy. Bladder: No bladder wall thickening, accounting for underdistention. Pelvic Nodes: Large right external lymph node measuring 3.2 x 2.3 cm (2/65). Prominent, but not enlarged, left external iliac lymph node measuring 1.1 x 0.7 cm (2/63). Additional prominent, but not enlarged left external iliac lymph node measuring 1.4 x 0.8 cm (2/67). Miscellaneous: No inguinal hernias are seen. Bones: No aggressive osseous abnormality. No aggressive appearing lytic or blastic osseous lesions. Multilevel degenerative changes of the spine, worse at L5-S1. IMPRESSION: 1. History of prostate cancer. Please see MRI prostate for detailed description of malignancy. 2. Large right external iliac lymph node measuring 3.2 x 2.3 cm is highly suspicious for metastasis. 3. A few prominent, but not enlarged, left external iliac lymph nodes are indeterminate. 4. Lower chest demonstrates a middle lobe solid pulmonary nodule measuring 2 mm which is indeterminate. Small cluster of centrilobular nodules in the left lower lobe may represent bronchiolitis of infectious or inflammatory etiology. 5. Extensive colonic diverticulosis, without diverticulitis. Dictated by: Jimenez Long M.D. on 03/13/2024 at 12:18 Approved by: Jimenez Long M.D. on 03/13/2024 at 13:43
[2024-03-13 09:14] LABS: Estimated Glomerular Filt Rate > 60 mL/min (>60)
== END ==
LOC: CT 08:30
PROVIDERS: Family Provider Internal Medicine; PCP Internal Medicine; Referring Provider Urology; Visit Provider Urology
DX: C61 Malignant neoplasm of prostate (principal); R59.0 Localized enlarged lymph nodes; R91.8 Other nonspecific abnormal finding of lung field; K57.90 Diverticulosis of intestine, part unspecified, without perforation or abscess without bleeding; R93.89 Abnormal findings on diagnostic imaging of other specified body structures; R97.20 Elevated prostate specific antigen [PSA]; M47.817 Spondylosis without myelopathy or radiculopathy, lumbosacral region
CPT/HCPCS: 36415; 74177; 82565; Q9967

== ENCOUNTER → 2024-04-02 09:13 | Outpatient (CLI) | payer MEDICARE, BC, SELFPAY ==
--- NOTE | 2024-04-02 09:14 | DI.NM.S_ITS ---
PROCEDURE: NM BONE SCAN WHOLE BODY RADIOPHARMACEUTICAL: 20.5 mCi Tc-99m MDP IV. INDICATIONS: New diagnosis prostate cancer TECHNIQUE: Delayed whole-body scintigrams were obtained approximately 3-4 hours after intravenous injection of radiotracer. Anterior and posterior views were acquired from vertex to feet. COMPARISON: [facility], CT, CT CHEST W CON, 06/16/2021, 7:57. [facility], CT, CT ABDOMEN PELVIS W CON, 03/13/2024, 9:38. [facility], MR, MR PELVIC PROSTATE PROTOCOL, 01/24/2024, 8:23. FINDINGS: Focal increased uptake at the left iliac wing. Focal increased uptake at the left sternum. There is also all increased uptake at the right knee which is likely due to prior arthroplasty. Increased uptake at the AC joints which is felt to be degenerative in nature. IMPRESSION: 1. Focal increased uptake at the left iliac wing is suspicious for metastasis. In retrospect there is peripheral enhancement on prior MRI and subtle increased density on prior CT. 2. Focal increased uptake at the left sternum. Indeterminate. This could be degenerative in nature. 3. Degenerative uptake at the right knee and acromioclavicular joints. Dictated by: Saroj Garner M.D. on 04/02/2024 at 14:13 Approved by: Saroj Garner M.D. on 04/02/2024 at 14:22
== END ==
LOC: NUCM 09:14
PROVIDERS: Family Provider Internal Medicine; PCP Internal Medicine; Referring Provider Urology; Visit Provider Urology
DX: C61 Malignant neoplasm of prostate (principal)
CPT/HCPCS: 78306; A9503

== ENCOUNTER → 2024-07-16 11:33 | Outpatient (CLI) | payer MEDICARE, BC, SELFPAY ==
[2024-07-16 19:29] LABS: BUN Creatinine Ratio 21.8 (6-22); Blood Urea Nitrogen 17 mg/dL (9-20); Carbon Dioxide 23 mmol/L (22-32); Chloride 105 mmol/L (98-107); Estimated Glomerular Filt Rate > 60 mL/min (>60); Glucose 79 mg/dL (80-110); HEMOLYSIS < 15 (0-50); Potassium 4.3 mmol/L (3.4-5.1); Sodium 137 mmol/L (137-145)
== END ==
PROVIDERS: Family Provider Internal Medicine; PCP Internal Medicine; Referring Provider Urology; Visit Provider Urology
DX: C61 Malignant neoplasm of prostate (principal)
CPT/HCPCS: 36415; 80048

== ENCOUNTER → 2024-07-30 13:45 | Outpatient (CLI) | payer MEDICARE, BC, SELFPAY | LOC: LAB 13:47 | PROVIDERS: Family Provider Internal Medicine; PCP Internal Medicine; Referring Provider Internal Medicine; Visit Provider Internal Medicine | DX: R30.0 Dysuria (principal) | CPT/HCPCS: 87086 ==

== ENCOUNTER 2024-08-05 08:21 | Day surgery (SDC) | payer MEDICARE, BC, SELFPAY ==
[2024-08-05 08:50] VITALS: BP 142/80; PULSE 63; RESP 16; TEMP 36.5; O2SAT 98
[2024-08-05] MEDS: LACTATED RINGERS 1,000 ML 42 ML IV (09:03)
--- NOTE | 2024-08-05 09:33 | PM.HP.1 ---
History of Present Illness History of Present Illness Date Patient Seen: 08/05/24 Time Patient Seen: 09:33 Chief complaint: Screening Colonoscopy Narrative: 74-year-old male here for screening colonoscopy. No family history of intestinal malignancy. No significant abdominal pain melena or hematochezia. [facility] Medical History Slow transit constipation Bone lesion Enlargement of lymph node Pulmonary nodule Prostate cancer Abnormal finding on imaging History of tobacco use History of depression Family history of prostate cancer Elevated PSA Impaired fasting glucose Family history of colon cancer in mother Generalized anxiety disorder Hearing loss History of melanoma Mixed hyperlipidemia BPH w urinary obs/LUTS Hypertension Surgical History History of knee replacement History of urethral stent History of appendectomy Family History Father BPH (benign prostatic hyperplasia) Cancer Hearing impairment Mother Cancer Coronary artery disease Diabetes mellitus Hearing impairment Social History marital status: unmarried,single details: brother ([place]), single, 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, 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 number of children: 1 Smoking Status: Former smoker Tobacco: How many years used: 30 alcohol intake: former caffeine: Yes eating out: 1-3 times/week Type(s) of exercise: walking and bicycling Meds Home Medications and Allergies Home Medications Medication Instructions Recorded Confirmed Type multivitamin (Multiple Vitamins 1 tab PO QDAY ##0 01/31/18 07/09/24 History tablet) omega 9-vat-rbe-fish oil 1,000 mg 1,000 mg PO DAILY ##0 01/31/18 08/05/24 History (120 mg-180 mg) capsule (Fish Oil) coenzyme Q10 100 mg capsule (Co 100 mg PO DAILY 08/21/23 07/09/24 History Q-10) simvastatin 20 mg tablet 20 mg PO DAILY #90 tabs 08/04/24 08/05/24 Rx abiraterone 500 mg tablet 2,000 mg PO DAILY 08/05/24 08/05/24 History tamsulosin 0.4 mg capsule (Flomax) 0.4 mg PO DAILY 08/05/24 08/05/24 History Allergies Allergy/AdvReac Type Severity Reaction Status Date / Time bee venom protein (honey bee) Allergy Severe anaphalatic Verified 08/05/24 08:42 [BEE VENOM PROTEIN (HONEY BEE)] alfuzosin AdvReac Intermediate GI upset Verified 08/05/24 08:42 Exam Vital Signs (past 8 hours): - 08/05/24 08:50 Temperature 97.7 F Pulse Rate 63 Respiratory Rate 16 Blood Pressure 142/80 H Pulse Oximetry 98 Oxygen Delivery Method Room Air Oxygen Delivery Method Room Air Narrative Exam Narrative: General adult man alert oriented no acute distress Chest nonlabored respiration Extremities warm well perfused Assessment & Plan Assessment & Plan narrative: The patient requires colorectal screening and colonoscopy is recommended. Technical details were discussed. Risks, benefits, alternatives explained. Risks including but not limited to myocardial infarction, aspiration, bleeding, pain, missed lesion, incomplete examination, need for further radiographic studies, intestinal injury, and need for major abdominal surgery were discussed. All questions were answered to their satisfaction, and they are in agreement with this plan. Time-Based Coding :: [TOTAL MINUTES] spent with patient and on the chart (including review of chart, obtaining history, exam, reviewing outside data, placing orders, documenting exam and treatment plan, and counseling patient) on [DATE].
[2024-08-05 10:03] VITALS: BP 109/65; PULSE 64; TEMP 36.1; O2SAT 97
--- NOTE | 2024-08-05 10:06 | P.OP.COLON_ITS ---
Operative Date/Time/Diagnoses Date of procedure: 08/05/24 Time of procedure: 10:06 Pre-op diagnosis: Colorectal screening Procedure & Clinicians Study performed: Screening colonoscopy Same procedure as scheduled: Yes Indications: Screening Surgeon: Damian Welch Procedure Notes Procedure in detail: The history and physical was performed/updated and the patient is ASA class is 3. The procedure was discussed in detail with the patient. Potential risks complications including infection, bleeding, missed diagnosis, perforation, need for surgery, and were explained. Their questions were answered and informed consent was obtained. Patient was brought to the procedure room and placed standard monitoring equipment. The patient's vital signs were monitored continuously throughout the entire procedure. Prior to starting time-out was performed. The patient was placed in the left lateral recumbent position. Procedural sedation was administered by anesthesia. Examination began with a thorough inspection of the perianal area there was no evidence of fissures, fistulae, external hemorrhoids or cutaneous malignancy. The colonoscopy scope was then placed into the anal canal and was advanced to the cecum, which was identified by the ileocecal valve, the appendiceal orifice and the confluence of the taenia. The scope was then slowly withdrawn examining colon thoroughly in all directions, irrigating it of any residual stool. The scope was retroflexed within the rectum The patient tolerated the procedure well. They will be discharged once criteria are met. The prep was of fair quality. The withdrawl time was 6 minutes. FINDINGS * Diverticulosis of descending colon * No mass or polyps Findings: divertiulosis Specimen(s): none sent Impression: Normal colonoscopy Post-procedure Recommendations: High fiber diet Plan for aftercare: No further colonoscopy necessary unless symptomatic Disposition: same day surgery
[2024-08-05 10:08] VITALS: BP 112/65; PULSE 61; RESP 19; O2SAT 96
[2024-08-05 10:35] VITALS: BP 112/80; PULSE 65; RESP 16; TEMP 36.4; O2SAT 97
== END 2024-08-05 10:35 | disposition home or self-care (01) ==
PROVIDERS: Family Provider Internal Medicine; PCP Internal Medicine; Referring Provider Surgery; Visit Provider Surgery
PROC: 0DJD8ZZ Inspection of Lower Intestinal Tract, Via Natural or Artificial Opening Endoscopic (ICD-10-PCS; CPT 45378; principal; 2024-08-05 09:15)
DX: Z12.11 Encounter for screening for malignant neoplasm of colon (principal); K57.30 Diverticulosis of large intestine without perforation or abscess without bleeding
CPT/HCPCS: G0121; J2704

== ENCOUNTER → 2024-08-12 08:58 | Outpatient (CLI) | payer MEDICARE, BC, SELFPAY ==
[2024-08-12 10:11] LABS: Hematocrit 41.7 % (41-53); Hemoglobin 14.6 g/dL (13.5-17.5); Mean Corpuscular HGB Conc 35.1 % (30-36); Mean Corpuscular Hemoglobin 33.5 PG (26-34); Mean Corpuscular Volume 95.5 fL (80-100); Platelet Count 240 X10^3/uL (150-400); Red Blood Cell Count 4.36 X10^6/uL (4.5-5.9); Red Cell Distribution Width 12.8 % (11.6-14.8); White Blood Cell Count 4.8 X10^3/uL (4.5-11.0)
[2024-08-12 10:22] LABS: HEMOLYSIS < 15 (0-50)
[2024-08-12 10:28] LABS: Hemoglobin A1C% w Est Avg Glu 5.1 % (4.0-6.0)
[2024-08-12 10:30] LABS: Alanine Aminotransferase 27 IU/L (<50); Albumin 3.8 g/dL (3.5-5.0); Albumin Globulin Ratio 1.3 (1.0-2.8); Alkaline Phosphatase 75 U/L (38-126); Aspartate Aminotransferase 28 IU/L (17-59); BUN Creatinine Ratio 26.8 (6-22); Bilirubin Total 0.6 mg/dL (0.2-1.3); Blood Urea Nitrogen 22 mg/dL (9-20); Calcium 9.2 mg/dL (8.4-10.2); Carbon Dioxide 27 mmol/L (22-32); Chloride 103 mmol/L (98-107); Cholesterol 164 mg/dL (140-199); Estimated Glomerular Filt Rate > 60 mL/min (>60); Glucose 78 mg/dL (80-110); HDL Cholesterol 48 mg/dL (40-60); LDL Cholesterol Calculated 85 mg/dL (<100); Sodium 135 mmol/L (137-145); Total Protein 6.8 g/dL (6.3-8.2); Triglycerides 157 mg/dL (35-150)
[2024-08-12 18:10] LABS: Prostate Specific Antigen 1.13 ng/mL (0.10-4.00)
== END ==
PROVIDERS: Family Provider Internal Medicine; PCP Internal Medicine; Referring Provider Internal Medicine; Visit Provider Anesthesiology
DX: R97.20 Elevated prostate specific antigen [PSA] (principal); R73.01 Impaired fasting glucose; E78.2 Mixed hyperlipidemia; N40.1 Benign prostatic hyperplasia with lower urinary tract symptoms; N13.8 Other obstructive and reflux uropathy
CPT/HCPCS: 36415; 80053; 80061; 83036; 84153; 85027

== ENCOUNTER → 2025-08-31 09:38 | Outpatient (CLI) | payer MEDICARE, BC, SELFPAY ==
[2025-08-31 10:10] LABS: Hemoglobin A1C% w Est Avg Glu 4.9 % (4.0-6.0)
[2025-08-31 10:44] LABS: Blood Urea Nitrogen 24 mg/dL (9-20); Calcium 9.2 mg/dL (8.4-10.2); Carbon Dioxide 26 mmol/L (22-32); Chloride 106 mmol/L (98-107); Cholesterol 165 mg/dL (140-199); Estimated Glomerular Filt Rate > 60 mL/min (>60); Glucose 80 mg/dL (70-99); HDL Cholesterol 64 mg/dL (40-60); HEMOLYSIS < 15 (0-50); Potassium 4.2 mmol/L (3.4-5.1); Sodium 138 mmol/L (137-145); Triglycerides 74 mg/dL (35-150)
[2025-08-31 11:16] LABS: TSH w/ Reflex to FT4 1.89 uIU/mL (0.47-4.68)
== END ==
PROVIDERS: Family Provider Internal Medicine; PCP Internal Medicine; Referring Provider Internal Medicine; Visit Provider Internal Medicine
DX: R73.01 Impaired fasting glucose (principal); E78.2 Mixed hyperlipidemia
CPT/HCPCS: 36415; 80048; 80061; 83036; 84443; 84450